=== PATIENT | male | born 1995 | race Caucasian/White ===

== ENCOUNTER 2020-08-02 09:37 | Emergency (ER) | payer BC ==
--- NOTE | 2020-08-02 10:08 | EDM.PDOC ---
ED HPI GENERAL MEDICAL PROBLEM - General Chief Complaint: ENT Problem Stated Complaint: POSSIBLE BROKEN NOSE Time Seen by Provider: 08/02/20 09:54 Source of Information: Reports: Patient History Limitations: Reports: No Limitations - History of Present Illness INITIAL COMMENTS - FREE TEXT/NARRATIVE: Patient is a 25-year-old male who presents today for possible nasal bone fractu re. Patient states he fell into the wall and has a slight and some pain in the nasal bridge of his nose. Patient is able to breathe has no other complaints. Patient denies any LOC or other injuries from the fall. nose Pain Score (Numeric/FACES): 4 - Related Data Allergies Allergy/AdvReac Type Severity Reaction Status Date / Time No Known Allergies Allergy Verified 08/02/20 09:56 Home Meds: Home Meds . [No Known Home Meds] 08/02/20 [History] Past Medical History - Past Health History Medical/Surgical History: Denies Medical/Surgical History Social & Family History - Tobacco Use Tobacco Use Status *Q: Never Tobacco User - Recreational Drug Use Recreational Drug Use: No ED ROS ENT - Review of Systems Review Of Systems: See Below Constitutional: Reports: No Symptoms HEENT: Reports: Nose Pain Respiratory: Reports: No Symptoms Endocrine: Reports: No Symptoms GI/Abdominal: Reports: No Symptoms : Reports: No Symptoms Musculoskeletal: Reports: No Symptoms Skin: Reports: No Symptoms Neurological: Reports: No Symptoms Psychiatric: Reports: No Symptoms Hematologic/Lymphatic: Reports: No Symptoms Immunologic: Reports: No Symptoms ED EXAM, ENT - Physical Exam Exam: See Below Exam Limited By: No Limitations General Appearance: Alert, WD/WN Eye Exam: Left Eye: Periorbital Changes (brusing ), Bilateral Eye: EOMI, PERRL Nose: No: Nasal Deformity, Nasal Discharge, Septal Hematoma Mouth/Throat: Normal Inspection Respiratory/Chest: No Respiratory Distress, Lungs Clear Neurological: Alert, Oriented Course - Vital Signs Last Recorded V/S: Last Vital Signs Temp 97.4 F 08/02/20 09:51 Pulse 85 08/02/20 10:27 Resp 16 08/02/20 09:51 BP 128/75 08/02/20 09:51 Pulse Ox 99 08/02/20 10:27 - Re-Assessments/Exams Free Text/Narrative Re-Assessment/Exam: 08/02/20 10:44 Patient has a notable fracture on CT scan. No acute intervention needed today will refer to ENT. Departure - Departure Time of Disposition: 10:44 Disposition: Home, Self-Care 01 Condition: Good Clinical Impression: Nasal bone fracture - Discharge Information *PRESCRIPTION DRUG MONITORING PROGRAM REVIEWED*: Not Applicable *COPY OF PRESCRIPTION DRUG MONITORING REPORT IN PATIENT NEELIMA: Not Applicable Instructions: Nasal Fracture, [id number] Referrals: PCP,None [Primary Care Provider] - Forms: ED Department Discharge Additional Instructions: The following information is given to patients seen in the emergency department who are being discharged to home. This information is to outline your options for follow-up care. We provide all patients seen in our emergency department with a follow-up referral. The need for follow-up, as well as the timing and circumstances, are variable depending upon the specifics of your emergency department visit. If you don't have a primary care physician on staff, we will provide you with a referral. We always advise you to contact your personal physician following an emergency department visit to inform them of the circumstance of the visit and for follow-up with them and/or the need for any referrals to a consulting specialist. The emergency department will also refer you to a specialist when appropriate. This referral assures that you have the opportunity for follow-up care with a specialist. All of these measure are taken in an effort to provide you with optimal care, which includes your follow-up. Under all circumstances we always encourage you to contact your private physician who remains a resource for coordinating your care. When calling for follow-up care, please make the office aware that this follow-up is from your recent emergency room visit. If for any reason you are refused follow-up, please contact the Emergency Department at and asked to speak to the emergency department charge nurse. Please follow up with your primary care physician. If you do not have a primary care physician, see below: [facility] [address] [place] [id number] [facility] [address] [place] [address] Please follow-up with the ear nose and throat doctor for possible cosmetic reconstruction of your nasal bone fracture there is nothing acutely to be done today if you have any difficulty breathing or other issues please return to the ED. Sepsis Event Note (ED) - Evaluation Sepsis Screening Result: No Definite Risk - Focused Exam Vital Signs: Vital Signs Temp Pulse Resp BP Pulse Ox 08/02/20 10:27 85 99 08/02/20 09:51 97.4 F 90 16 128/75 95 - Assessment/Plan Assessment:: Is a 25-year-old male who presents today for possible nasal bone fracture. Patient has no septal hematoma deformities on examination patient breathing clearly is not in distress. Will likely refer patient to ENT if patient needs any cosmetic repair.
--- NOTE | 2020-08-02 10:38 | CT ---
INDICATION: Possible nasal bone fracture. Patient pushed into a wall last night. Caught on top of nose. TECHNIQUE: CT face without IV contrast including axial, coronal, and sagittal images. FINDINGS: Moderately displaced and depressed medially acute fracture/fractures involving the left nasal bone. The fractures extend to the posterior most aspect of the left nasal bone. Moderate soft tissue swelling involving the nose especially on the left related to this fracture. Second acute fracture involving the midline anterior nasal bone best seen on sagittal views. No other facial fractures identified. Minimal fluid and/or mucosal thickening left sphenoid sinus with slight nodularity. Focal fluid and density in the nasal passage anteriorly related to the trauma. Remainder negative. IMPRESSION: 1. Mild to moderately displaced and depressed acute fractures involving the midline anterior and to a greater extent diffuse left lateral nasal bone with overlying moderate soft tissue swelling. No other acute fractures involving the facial bones. 2. Fluid in density in the anterior nasal passage related to the trauma to the nasal bone. Minimal inflammatory changes in the sphenoid sinus. Other findings as above. Please note that all CT scans at this facility use dose modulation, iterative reconstruction, and/or weight-based dosing when appropriate to reduce radiation dose to as low as reasonably achievable. Dictated by Edward Choe MD @ Aug 02 2020 10:35AM Signed by Dr. Edward Choe @ Aug 02 2020 10:36AM
== END 2020-08-02 10:53 | disposition home or self-care (01) ==
LOC: MW.ED 09:37
DX: S02.2XXA Fracture of nasal bones, initial encounter for closed fracture (principal); W22.8XXA Striking against or struck by other objects, initial encounter
CPT/HCPCS: 70486; 70486-26; 99282; 99283-25